=== PATIENT | female | born 1945 | race Caucasian/White ===

== ENCOUNTER 2018-09-30 09:58 | Emergency (ER) | payer MEDICARE ==
[2018-09-30] MEDS ORDERED: NORMAL SALINE 1000 ML 1,000 ML IV ONE (11:13)
[2018-09-30] MEDS ORDERED: ACETAMINOPHEN 325 MG TABLET PO ONE (11:13)
--- NOTE | 2018-09-30 11:15 | ER Document Report ---
ED Medical Screen (RME) - General Chief Complaint: Shortness Of Breath Stated Complaint: DIFFICULTY BREATHING Time Seen by Provider: 09/30/18 11:10 TRAVEL OUTSIDE OF THE [place] IN LAST 30 DAYS: No - HPI Notes: 09/30/18 11:14 Patient is a 73-year-old female that presents to the emergency department for chief complaint of chills, shortness of breath and cough. Patient reports shaking chills this morning as well as coughing up "chartreuse" mucus. She now has associated shortness of breath. She denies any abdominal pain, nausea, vomiting and chest pain ROS: GENERAL: chills CV: Denies chest pain PHYSICAL EXAMINATION: GENERAL: Well-appearing, well-nourished and in no acute distress. HEAD: Atraumatic, normocephalic. EYES: Pupils equal round extraocular movements intact, conjunctiva are normal. ENT: Nares patent NECK: Normal range of motion LUNGS: No respiratory distress Musculoskeletal: Normal range of motion NEUROLOGICAL: Normal speech, normal gait. PSYCH: Normal mood, normal affect. MDM: Patient seen and examined for rapid initial assessment. Vital signs reviewed. A comprehensive ED assessment and evaluation of the patient, analysis of test results and completion of the medical decision making process will be conducted by additional ED providers. - Related Data Allergies/Adverse Reactions: No Known Allergies Allergy (Unverified 09/30/18 10:03) Physical Exam - Vital signs Vitals: Temp Pulse Resp BP Pulse Ox 98.8 F 94 16 103/47 L 98 09/30/18 10:07 09/30/18 10:07 09/30/18 10:07 09/30/18 10:07 09/30/18 10:07 Course - Vital Signs Vital signs: Temp Pulse Resp BP Pulse Ox 98.8 F 94 16 103/47 L 98 09/30/18 10:07 09/30/18 10:07 09/30/18 10:07 09/30/18 10:07 09/30/18 10:07
[2018-09-30] MEDS ORDERED: ALBUTEROL SULFATE 0.083% NEB 2.5 MG/3 ML AMPUL NEB ONE (12:30)
--- NOTE | 2018-09-30 13:38 | RADIOLOGY REPORT (SQ) ---
EXAM DESCRIPTION: CHEST SINGLE VIEW COMPLETED DATE/TIME: 09/30/2018 1:06 pm REASON FOR STUDY: cough COMPARISON: None. EXAM PARAMETERS: NUMBER OF VIEWS: One view. TECHNIQUE: Single frontal radiographic view of the chest acquired. RADIATION DOSE: NA LIMITATIONS: Positioning. FINDINGS: LUNGS AND PLEURA: Subsegmental airspace disease in the right lower lobe. MEDIASTINUM AND HILAR STRUCTURES: No masses. Contour normal. HEART AND VASCULAR STRUCTURES: Cardiomegaly. Normal vasculature. BONES: No acute findings. HARDWARE: None in the chest. OTHER: No other significant finding. IMPRESSION: Atelectasis or early pneumonia right lower lobe. TECHNICAL DOCUMENTATION: JOB ID: [id number] [employer]- All Rights Reserved Reading location - IP/workstation name: [email or web address]
[2018-09-30] MEDS ORDERED: PREDNISONE 20 MG TABLET PO ONE (13:43)
[2018-09-30] MEDS ORDERED: LEVOFLOXACIN 750 MG TABLET PO ONE (13:43)
--- NOTE | 2018-09-30 13:44 | ER Document Report ---
ED Respiratory Problem - General Chief Complaint: Shortness Of Breath Stated Complaint: DIFFICULTY BREATHING Time Seen by Provider: 09/30/18 11:10 Mode of Arrival: Ambulatory Information source: Patient Notes: Pt is a 73 year old female with a history of COPD and pneumonia who presents to the ER today for productive cough, wheezing and chills that all started last night. Pt has not checked her temperature. She admits to some shortness of breath with this. Denies vomiting, diarrhea, has no inhaler at home to use, she denies chest pain. TRAVEL OUTSIDE OF THE [place] IN LAST 30 DAYS: No - Related Data Allergies/Adverse Reactions: No Known Allergies Allergy (Unverified 09/30/18 10:03) Past Medical History - General Information source: Patient - Social History Smoking Status: Former Smoker Chew tobacco use (# tins/day): No Frequency of alcohol use: Social Drug Abuse: None Family History: Reviewed & Not Pertinent Patient has suicidal ideation: No Patient has homicidal ideation: No - Past Medical History Cardiac Medical History: Reports: Hx Hypercholesterolemia, Hx Hypertension Pulmonary Medical History: Reports: Hx Bronchitis - chronic, Hx COPD, Hx Pneumonia Renal/ Medical History: Denies: Hx Peritoneal Dialysis Musculoskeletal Medical History: Reports Hx Arthritis Past Surgical History: Reports: Hx Cardiac Surgery - stent, Hx Oral Surgery - jaw surgery, Hx Tonsillectomy Review of Systems - Review of Systems Constitutional: See HPI EENT: See HPI Cardiovascular: No symptoms reported Respiratory: See HPI Gastrointestinal: No symptoms reported Genitourinary: No symptoms reported Female Genitourinary: No symptoms reported Musculoskeletal: No symptoms reported Skin: No symptoms reported Hematologic/Lymphatic: No symptoms reported Neurological/Psychological: No symptoms reported Physical Exam - Vital signs Vitals: Temp Pulse Resp BP Pulse Ox 98.8 F 94 16 103/47 L 98 09/30/18 10:07 09/30/18 10:07 09/30/18 10:07 09/30/18 10:07 09/30/18 10:07 - Notes Notes: PHYSICAL EXAMINATION: GENERAL: mildly ill-appearing but in no acute distress. HEAD: Atraumatic, normocephalic. EYES: Pupils equal round and reactive to light, extraocular movements intact, sclera anicteric, conjunctiva are normal. ENT: airway patent, nose with mucoid rhinorrhea, oropharynx without erythema or enlarged tonsils NECK: Normal range of motion, supple without lymphadenopathy LUNGS: CTAB and equal. No wheezes rales or rhonchi. HEART: Regular rate and rhythm without murmurs ABDOMEN: Soft, no tenderness. No guarding, no rebound BACK: no vertebral tenderness, normal ROM GI/: no CVA tenderness EXTREMITIES: Normal range of motion, no pitting edema. No cyanosis. NEUROLOGICAL: Cranial nerves grossly intact. Normal sensory/motor exams. PSYCH: Normal mood, normal affect. SKIN: Warm, Dry, normal turgor, no rashes or lesions noted Course - Re-evaluation Re-evalutation: 09/30/18 13:19 chest x ray shows an early right lower lobe pneumonia verseus atelectasis, given incentive spirometer, albuterol inhaler, feeling better after breathing treatment here, pt is a difficult stick and afte chest x ray resulted since her vitals are all normal, I gave her the option to stop trying to get labwork and an IV and she agrees, will go home on marquise aguirre, to follow up with her pcp. 09/30/18 23:21 - Vital Signs Vital signs: Temp Pulse Resp BP Pulse Ox 98.3 F 94 25 H 123/43 L 88 L 09/30/18 14:56 09/30/18 10:07 09/30/18 15:00 09/30/18 14:56 09/30/18 15:00 - Laboratory Result Diagrams: 09/30/18 13:40 09/30/18 13:40 Laboratory results interpreted by me: 09/30/18 13:40 WBC 13.6 H RDW 15.0 H Lymphocytes % 12.7 L Absolute Neutrophils 10.0 H Discharge - Discharge Clinical Impression: Pneumonia Qualifiers: Pneumonia type: due to unspecified organism Laterality: right Lung location: lower lobe of lung Qualified Code(s): J18.1 - Lobar pneumonia, unspecified organism Condition: Stable Disposition: HOME, SELF-CARE Instructions: Pneumonia ([facility]) Additional Instructions: Return immediately for any new or worsening symptoms. Follow up with primary care provider, call tomorrow to make followup appointment. Please use the incentive spirometer every hour while awake for the next 2 days. This will help open up your lungs in the bases. Prescriptions: Albuterol Sulfate [Proair HFA Inhalation Aerosol 8.5 gm MDI] 2 puff IH Q4H PRN #1 mdi PRN Reason: Guaifenesin/D-Methorphan Hb [Robitussin-Dm Syrup 10 Ml Udcup] 10 ml PO Q6H #120 ml Levofloxacin [Levaquin 750 mg Tablet] 750 mg PO DAILY #5 tablet
[2018-09-30 13:54] LABS: ABSOLUTE BASOPHILS # (AUTO) 0.1 10^3/uL (0.0-0.2); ABSOLUTE EOSINOPHILS # (AUTO) 0.6 10^3/uL (0.0-0.6); ABSOLUTE LYMPHOCYTES (AUTO) 1.7 10^3/uL (0.5-4.7); ABSOLUTE MONOCYTES (AUTO) 1.2 10^3/uL (0.1-1.4); BASOPHILS % (AUTO) 0.6 % (0-2); EOSINOPHILS % (AUTO) 4.3 % (0-6); HEMATOCRIT 36.8 % (36.0-47.0); HEMOGLOBIN 12.3 g/dL (12.0-15.5); LYMPHOCYTES % (AUTO) 12.7 % (13-45); MEAN CORPUSCULAR HEMOGLOBIN 30.8 pg (27.0-33.4); MEAN CORPUSCULAR HGB CONC 33.5 g/dL (32.0-36.0); MEAN CORPUSCULAR VOLUME 92 fl (80-97); MONOCYTES % (AUTO) 8.8 % (3-13); PLATELET COUNT 223 10^3/uL (150-450); SEGMENTED NEUTROPHILS % (AUTO) 73.6 % (42-78); TOTAL CELLS COUNTED % (AUTO) 100 %; WHITE BLOOD COUNT 13.6 10^3/uL (4.0-10.5)
[2018-09-30 13:59] LABS: PROTHROMBIN TIME 12.6 SEC (11.4-15.4)
[2018-09-30] MEDS ORDERED: LEVOFLOXACIN 500 MG/D5W RTU 500 MG/100 ML RTUPB IV SCH (14:00)
[2018-09-30 15:03] VITALS: BP 123/43
--- NOTE | 2018-09-30 16:22 | EKG REPORT ---
SEVERITY:- NORMAL ECG - SINUS RHYTHM : Confirmed by: Abdi Johansen MD 30-Sep-2018 16:21:53
== END 2018-09-30 15:13 | disposition home or self-care (01) ==
LOC: ER 09:58
DX: J18.1 Lobar pneumonia, unspecified organism (principal); J44.9 Chronic obstructive pulmonary disease, unspecified
CPT/HCPCS: 93005; 94640; 99285; 36415; 87040; 85025; 85610; 83605; 71045; 93010; A9270 ×4; J7512